=== PATIENT | female | born 1960 | race Two or more races ===

== ENCOUNTER 2018-08-17 05:09 | Emergency (ER) | payer OTHER ==
[~2018-08-17] VITALS: Ht 152.4 cm; Wt 52.2 kg
--- NOTE | 2018-08-17 05:20 | NUR ---
[id number] FROM HOME C/O CP X 90 MIN. DENIES SOB. PATIENT DESCRIBES NON RADIATING, BURNING PAIN IN CENTER OF CHEST. ASA 162MG/NITRO SL X 2 [employer]. PT AOX3 RR EVEN AND UNLABORED. NO SOB NOTED. NAD NOTED. NO NVD AT THIS TIME. PT NOT DIAPHORETIC. RESTING WITH EYES CLOSED. PT GOWNED AND PLACED ON MONITOR WAITING FOR MD GÓMEZ. PER RA PLACED IV ON LEFT AC 20G. H/L INTACT AND PATENT. NO S/S INFECTION OR INFILTRATION NOTED.
[2018-08-17 05:39] LABS: BASOPHILS # (AUTO) 0.1 /CMM (0.0-0.2); BASOPHILS % (AUTO) 0.8 % (0.0-2.0); EOSINOPHILS % (AUTO) 1.3 % (0.0-6.0); HEMATOCRIT 35 % (33-45); HEMOGLOBIN 11.7 g/dL (11.5-14.8); LYMPHOCYTES # (AUTO) 2.1 /CMM (0.8-4.8); LYMPHOCYTES % (AUTO) 14.5 % (20.0-44.0); MEAN CORPUSCULAR HGB CONC 34 g/dl (31.0-36.0); MEAN CORPUSCULAR VOLUME 96 fL (82-100); MONOCYTES # (AUTO) 0.4 /CMM (0.1-1.30); MONOCYTES % (AUTO) 2.7 % (2.0-12.0); NEUTROPHILS # (AUTO) 11.6 /CMM (1.8-8.9); NEUTROPHILS % (AUTO) 80.7 % (43.0-81.0); PLATELET COUNT (AUTO) 272 /CMM (150-450); RDW COEFFICIENT OF VARIATION 13.8 (11.5-15.0); RED BLOOD CELL COUNT(AUTO) 3.64 MIL/uL (4.0-5.2); WHITE BLOOD COUNT (AUTO) 14.4 K/uL (4.3-11.0)
[2018-08-17 05:47] LABS: CALCIUM, SERUM 8.6 mg/dL (8.5-10.1); CARBON DIOXIDE 26 mmol/L (21-32); CHLORIDE 105 mmol/L (98-107); CREATININE 0.7 mg/dL (0.6-1.3); GLUCOSE 121 mg/dL (74-106); POTASSIUM 3.6 mmol/L (3.5-5.1); SODIUM SERUM 141 mmol/L (136-145); UREA NITROGEN, BLOOD 16 mg/dL (7-18)
[2018-08-17 05:56] LABS: TROPONIN I < 0.017 ng/mL (0.00-0.056)
--- NOTE | 2018-08-17 05:57 | NUR ---
RADIOLOGY AT BEDSIDE FOR CXR
[2018-08-17 06:01] LABS: INR 1.03 (0.87-1.13)
[2018-08-17] MEDS ORDERED: MAGNESIUM HYDROXIDE 30 ML UDC ONE (06:17)
[2018-08-17] MEDS ORDERED: LIDOCAINE VISCOUS 2% UD 15 ML UDC ONE (06:18)
[2018-08-17] MEDS ORDERED: MAG HYDROX/AL HYDROX/SIMETH 30 ML UDC PO ONE (06:30)
[2018-08-17] MEDS ORDERED: LIDOCAINE VISCOUS 2% UD 15 ML UDC MM ONE (06:30)
--- NOTE | 2018-08-17 06:50 | NUR ---
DR. ANGEL SPEAKING TO PT AND PT REGARDING POC/ RESULTS.
--- NOTE | 2018-08-17 07:05 | NUR ---
IV removed. Catheter intact and site benign. Pressure and 4x4 applied to site. No bleeding noted. Patient discharged to home in stable condition. Written and verbal after care instructions given. Patient verbalizes understanding of instruction. ambulatory with a steady gait
[2018-08-17 07:12] VITALS: BP 118/68
== END 2018-08-17 07:13 | disposition home or self-care (01) ==
LOC: ER 05:11
DX: R07.89 Other chest pain (principal); F17.200 Nicotine dependence, unspecified, uncomplicated
CPT/HCPCS: 36415; 71045-TC; 80048-TC; 84484-TC; 85025-TC; 85730-TC; A4606; Z7610